=== PATIENT | male | born 1945 | race Caucasian/White ===

== ENCOUNTER 2021-02-23 09:32 | Day surgery (SDC) | payer MEDICARE, SELFPAY ==
[2021-02-18 14:05] VITALS: BMI 25.8
--- NOTE | 2021-02-20 09:36 | P.CONAN_ITS ---
Documented by User: Nelly Ward NP 02/20/21 09:37 HPI - Anesthesia Eval Consult details Narrative: 75yo M for Colonoscopy [facility] Past Medical History Medical History BPH (benign prostatic hyperplasia) Hemochromatosis HTN (hypertension) Hyperlipidemia Surgical History Surgical History History of transurethral resection of prostate Hx of colonoscopy Social History Social History Advance Directives: No Advance Directives Information Provided: No Meds Allergies Allergy/AdvReac Type Severity Reaction Status Date / Time No Known Allergies Allergy Verified 02/18/21 14:02 Home Medications Medication Instructions Recorded Confirmed Last Taken Type atorvastatin 40 mg tablet 40 mg PO DAILY 02/18/21 02/18/21 Unknown History cholecalciferol (vitamin D3) 10 10 mcg PO DAILY 02/18/21 02/18/21 Unknown History mcg (400 unit) capsule (Vitamin D3) lisinopril 10 1 tab PO DAILY 02/18/21 02/23/21 02/23/21 08:30 History mg-hydrochlorothiazide 12.5 mg tablet Exam Exam Date and Time: February 20, 2021 0936 Height,Weight and Vital Signs: Height 5 ft 8 in Weight 77.111 kg Assessment and Plan Assessment Anesthesia Assessment: Chart Reviewed Documented by User: Davina Stewart MD 02/23/21 10:51 [facility] Past Medical History Medical History BPH (benign prostatic hyperplasia) Hemochromatosis HTN (hypertension) Hyperlipidemia Family History Family history of problems with anesthesia: No Surgical History Surgical History History of transurethral resection of prostate Hx of colonoscopy History of Problems with Anesthesia: No Social History Social History Advance Directives: No Advance Directives Information Provided: No Meds Allergies Allergy/AdvReac Type Severity Reaction Status Date / Time No Known Allergies Allergy Verified 02/18/21 14:02 Home Medications Medication Instructions Recorded Confirmed Last Taken Type atorvastatin 40 mg tablet 40 mg PO DAILY 02/18/21 02/18/21 Unknown History cholecalciferol (vitamin D3) 10 10 mcg PO DAILY 02/18/21 02/18/21 Unknown History mcg (400 unit) capsule (Vitamin D3) lisinopril 10 1 tab PO DAILY 02/18/21 02/23/21 02/23/21 08:30 History mg-hydrochlorothiazide 12.5 mg tablet Exam Airway Mallampati Class: II TM Dist: >3cm Neck ROM: Full Assessment and Plan Assessment Anesthesia Assessment: Anesthesia Plan Discussed Final Anesthetic Review Family History of Problems with Anesthesia: No History of Problems with Anesthesia: No NPO: Yes ASA Class: II Final Preanesthetic Review: No Changes in Pt Med Stat, Meds/Allgs Chart Reviewed, Consent Obtained/Reviewed and Anes Risks/Benef Reviewed Patient Risk: Low Procedure Risk: Low Assessment/Block/Sedation in SS: Assess/Block/Sedation-SS Anesthetic Plan Anesthetic Plan: MAC: Disposition: Standard PACU
[2021-02-23] VITALS (11 sets, daily range): BP systolic 74–141; BP diastolic 43–68; PULSE 54–70; RESP 16–18; TEMP 36.3; O2SAT 98–99; BMI 25.8
[2021-02-23] MEDS: Lactated Ringers 1,000 ML 100 ML IVCONT (10:53)
--- NOTE | 2021-02-23 12:07 | P.BOP_ITS ---
Brief Operative Note Date of Service: 02/23/21 Pre-op diagnosis: Screening Post-op diagnosis: other (Colon polyp) Procedure: Colonoscopy to the cecum with snare polypectomy Surgeon: Rajiv Borrego Anesthesia: MAC Was an Lead Auditor used for this Procedure?: No Estimated blood loss (mL): 2.0 Pathology: other (A. Ascending colon polyp) Condition: stable Disposition: PACU
--- NOTE | 2021-02-23 19:17 | OP_ITS ---
SURGEON: Rajiv Borrego MD INDICATIONS: The patient presents for followup of colorectal cancer screening and personal history of tubular adenoma of the colon. Full consent has been obtained from him for this, including risks of bleeding and perforation. PREOPERATIVE DIAGNOSIS: POSTOPERATIVE DIAGNOSIS: PROCEDURE PERFORMED: Colonoscopy to cecum with snare polypectomy. ESTIMATED BLOOD LOSS: COMPLICATIONS: ANESTHESIA: Monitored anesthesia care. ASSISTANTS: SPECIMENS: PREOPERATIVE DIAGNOSES: Colorectal cancer screening and personal history of tubular adenoma of the colon. POSTOPERATIVE DIAGNOSES: Colorectal cancer screening and personal history of tubular adenoma of the colon, colon polyp, diverticulosis and internal hemorrhoids. DESCRIPTION OF PROCEDURE: The patient was placed in the left lateral decubitus position. The digital rectal exam revealed no abnormalities. The Olympus video pediatric colonoscope was entered into the rectum and advanced easily to the cecum. Once in the cecum, I did identify normal-appearing cecal pouch with appendiceal orifice and a normal-appearing ileocecal valve. The entire cecum and ileocecal valve appeared normal. There was transillumination of light deep in the right lower quadrant. The scope was slowly withdrawn assessing all mucosal surfaces. Preparation was excellent. In the proximal ascending, colon on a fold, was an approximately 12 mm raised, but flat polyp, which was snared and removed in piecemeal fashion. At least one piece was recovered by suction. The polypectomy site appeared to be clean, without any sign of residual polyp nor bleeding. The scope was then slowly withdrawn assessing all mucosal surfaces carefully. Preparation was excellent. I did not visualize any other polyps other than what appeared to be less than 5 mm hyperplastic polyps in the rectosigmoid area. These were not biopsied nor removed. There was a moderate amount of diverticulosis noted in the sigmoid colon. In the rectum, scope was retroflexed visualizing prominent internal hemorrhoids, but no other pathology. The rectal mucosa appeared normal. The scope was straightened out and withdrawn from the patient. He tolerated procedure well and was returned to the recovery area in stable condition. IMPRESSION: 1. Colon polyp, status post snare polypectomy. 2. Diverticulosis. 3. Internal hemorrhoids. PLAN: The results of the pathology will be checked. Given these findings, I would recommend another screening colonoscopy in 5 years although he would be just about [id number] and we would have to take his clinical condition into account. He was advised not to use any aspirin and NSAIDs for 1 more week. MD PASCUAL Martin/ALLEN / [id number] [email or web address]
== END 2021-02-23 13:29 | disposition home or self-care (01) ==
PROVIDERS: PCP Internal Medicine; Visit Provider Internal Medicine
PROC: 0DJD8ZZ Inspection of Lower Intestinal Tract, Via Natural or Artificial Opening Endoscopic (ICD-10-PCS; CPT 45378; principal; 2021-02-23 10:50)
DX: Z12.11 Encounter for screening for malignant neoplasm of colon (principal); Z86.010 Personal history of colon polyps; D12.2 Benign neoplasm of ascending colon; K57.30 Diverticulosis of large intestine without perforation or abscess without bleeding; K64.8 Other hemorrhoids; I10 Essential (primary) hypertension; N40.0 Benign prostatic hyperplasia without lower urinary tract symptoms; E83.119 Hemochromatosis, unspecified; Z79.899 Other long term (current) drug therapy
CPT/HCPCS: 45385; 88305